=== PATIENT | female | born 1950 | race Caucasian/White ===

== ENCOUNTER 2017-04-13 08:13 | Inpatient (IN) | payer MEDICARE, OTHER ==
[2017-04-13 09:35] LABS: BASO # 0.1 10^3/uL (0.0-0.2); BASO % 1.2 % (0.0-1.0); EOS # 0.3 10^3/uL (0.0-0.50); EOS % 3.8 % (0.0-3.0); HEMOGLOBIN 11.8 g/dl (12.0-16.0); IMMATURE GRANULOCYTE % 0.5 % (0-0); LYMPH # 0.9 10^3/uL (1.5-4.5); LYMPH % 11.3 % (24.0-44.0); MEAN CORPUSCULAR HEMOGLOBIN 27.6 pg (27.0-33.0); MEAN CORPUSCULAR HGB CONC 33.7 g/dl (32.0-36.5); MEAN CORPUSCULAR VOLUME 81.8 fl (80.0-96.0); MONO # 0.8 10^3/uL (0.0-0.8); MONO % 10.1 % (0.0-5.0); NEUTROPHILS % 73.1 % (36.0-66.0); PLATELET COUNT, AUTOMATED 354 10^3/uL (150-450); RED BLOOD COUNT 4.28 10^6/uL (4.00-5.40); RED CELL DISTRIBUTION WIDTH 14.4 % (11.5-14.5); WHITE BLOOD COUNT 8.2 10^3/uL (4.0-10.0)
[2017-04-13 09:38] LABS: INR 0.96; PROTHROMBIN TIME 12.9 SECONDS (12.4-14.5)
[2017-04-13 09:39] LABS: PARTIAL THROMBOPLASTIN TIME 33.4 SECONDS (26.8-37.9)
[2017-04-13 09:48] LABS: ALBUMIN 3.3 GM/DL (3.2-5.2); ALBUMIN/GLOBULIN RATIO 0.79 (1.00-1.93); ALKALINE PHOSPHATASE 70 U/L (45-117); ALT/SGPT 14 U/L (12-78); ANION GAP 8 MEQ/L (8-16); AST/SGOT 15 U/L (7-37); BILIRUBIN,DIRECT < 0.1 MG/DL (0.0-0.2); BILIRUBIN,TOTAL 0.2 MG/DL (0.2-1.0); BLOOD UREA NITROGEN 17 MG/DL (7-18); CALCIUM LEVEL 8.4 MG/DL (8.8-10.2); CARBON DIOXIDE LEVEL 25 MEQ/L (21-32); CHLORIDE LEVEL 97 MEQ/L (98-107); CREATININE FOR GFR 0.97 MG/DL (0.55-1.02); GLOMERULAR FILTRATION RATE > 60.0 (>45); GLUCOSE, FASTING 71 MG/DL (70-100); LIPASE 137 U/L (73-393); POTASSIUM SERUM 4.4 MEQ/L (3.5-5.1); SODIUM LEVEL 130 MEQ/L (136-145); TOTAL PROTEIN 7.5 GM/DL (6.4-8.2)
[2017-04-13] MEDS: ONDANSETRON 4MG/2ML VIAL (J2405) IV ×2 (09:52→19:07)
[2017-04-13] MEDS: MORPHINE 4 MG/ML 1ML SYRINGE IV ×3 (09:53→14:11)
[2017-04-13] MEDS: NS 1,000 ML IV ×4 (09:53→16:52)
[2017-04-13] MEDS: READI-CAT 2 PO ×2 (11:36)
[2017-04-13] MEDS ORDERED: CREON-24 CAPSULE PO (17:00)
[2017-04-13] MEDS: MORPHINE 2 MG/ML 1ML SYRINGE IV ×2 (17:35→20:16)
[2017-04-13] MEDS ORDERED: ONDANSETRON 4 MG TAB (S0181) PO (18:45)
[2017-04-13] MEDS: MONTELUKAST 10 MG TAB PO (19:59)
[2017-04-13] MEDS: FAMOTIDINE 20 MG TAB PO (19:59)
[2017-04-13] MEDS: DOCUSATE SODIUM 100 MG CAP PO (19:59)
[2017-04-13] MEDS: CREON-24 CAPSULE PO (19:59)
[2017-04-13] MEDS: PROPRANOLOL 20 MG TAB PO (20:00)
[2017-04-13] MEDS: URSODIOL 300 MG CAP PO (20:00)
[2017-04-13] MEDS: ADVAIR HFA 115/21MCG INHALER INH (21:53)
[2017-04-14] MEDS: NS 1,000 ML IV ×2 (02:34→12:17)
[2017-04-14 06:09] LABS: HEMATOCRIT 31.7 % (36.0-47.0); HEMOGLOBIN 10.5 g/dl (12.0-16.0); MEAN CORPUSCULAR HEMOGLOBIN 27.6 pg (27.0-33.0); MEAN CORPUSCULAR HGB CONC 33.1 g/dl (32.0-36.5); MEAN CORPUSCULAR VOLUME 83.4 fl (80.0-96.0); PLATELET COUNT, AUTOMATED 278 10^3/uL (150-450); RED CELL DISTRIBUTION WIDTH 14.8 % (11.5-14.5); WHITE BLOOD COUNT 4.6 10^3/uL (4.0-10.0)
[2017-04-14 06:32] LABS: ANION GAP 5 MEQ/L (8-16); BLOOD UREA NITROGEN 8 MG/DL (7-18); CALCIUM LEVEL 7.8 MG/DL (8.8-10.2); CARBON DIOXIDE LEVEL 26 MEQ/L (21-32); CHLORIDE LEVEL 109 MEQ/L (98-107); CREATININE FOR GFR 0.64 MG/DL (0.55-1.02); GLOMERULAR FILTRATION RATE > 60.0 (>45); GLUCOSE, FASTING 86 MG/DL (70-100); POTASSIUM SERUM 4.2 MEQ/L (3.5-5.1); SODIUM LEVEL 140 MEQ/L (136-145)
[2017-04-14] MEDS: TIOTROPIUM INHALER/CAPSULE (SPIRIVA) INH (07:51)
[2017-04-14] MEDS: ADVAIR HFA 115/21MCG INHALER INH ×2 (07:51→19:30)
[2017-04-14] MEDS: OYSTER SHELL CALCIUM 500 MG TAB PO (08:29)
[2017-04-14] MEDS: FAMOTIDINE 20 MG TAB PO ×2 (08:29→21:04)
[2017-04-14] MEDS: DOCUSATE SODIUM 100 MG CAP PO ×2 (08:29→21:04)
[2017-04-14] MEDS: FEXOFENADINE 60 MG TAB PO (08:29)
[2017-04-14] MEDS: PROPRANOLOL 20 MG TAB PO ×3 (08:32→21:03)
[2017-04-14] MEDS: CREON-24 CAPSULE PO ×3 (08:33→17:36)
[2017-04-14] MEDS: URSODIOL 300 MG CAP PO ×2 (08:36→21:04)
[2017-04-14] MEDS ORDERED: MORPHINE 2 MG/ML 1ML SYRINGE IV (09:15)
[2017-04-14] MEDS ORDERED: SIMETHICONE 80 MG CHEW TAB PO (09:15)
[2017-04-14] MEDS: MORPHINE 2 MG/ML 1ML SYRINGE IV ×2 (09:53→21:05)
[2017-04-14] MEDS: MONTELUKAST 10 MG TAB PO (21:04)
[2017-04-14] MEDS ORDERED: IPRATROPIUM 0.5MG/ALBUTEROL 2.5MG INH SOL UD 3ML (DUONEB)(J7620) NEB (22:30)
[2017-04-15] MEDS: NS 1,000 ML IV ×3 (01:30→17:20)
[2017-04-15] MEDS: MORPHINE 2 MG/ML 1ML SYRINGE IV ×2 (04:40→07:42)
[2017-04-15 06:16] LABS: HEMATOCRIT 31.1 % (36.0-47.0); HEMOGLOBIN 10.5 g/dl (12.0-16.0); MEAN CORPUSCULAR HEMOGLOBIN 27.8 pg (27.0-33.0); MEAN CORPUSCULAR HGB CONC 33.8 g/dl (32.0-36.5); MEAN CORPUSCULAR VOLUME 82.3 fl (80.0-96.0); PLATELET COUNT, AUTOMATED 251 10^3/uL (150-450); RED BLOOD COUNT 3.78 10^6/uL (4.00-5.40); RED CELL DISTRIBUTION WIDTH 14.9 % (11.5-14.5); WHITE BLOOD COUNT 6.4 10^3/uL (4.0-10.0)
[2017-04-15 06:27] LABS: ANION GAP 6 MEQ/L (8-16); BLOOD UREA NITROGEN 6 MG/DL (7-18); CALCIUM LEVEL 8.2 MG/DL (8.8-10.2); CARBON DIOXIDE LEVEL 26 MEQ/L (21-32); CHLORIDE LEVEL 108 MEQ/L (98-107); CREATININE FOR GFR 0.55 MG/DL (0.55-1.30); GLOMERULAR FILTRATION RATE > 60.0 (>45); GLUCOSE, FASTING 104 MG/DL (70-100); POTASSIUM SERUM 3.9 MEQ/L (3.5-5.1); SODIUM LEVEL 140 MEQ/L (136-145)
[2017-04-15] MEDS: TIOTROPIUM INHALER/CAPSULE (SPIRIVA) INH (07:32)
[2017-04-15] MEDS: ADVAIR HFA 115/21MCG INHALER INH ×2 (07:33→19:25)
[2017-04-15] MEDS: CREON-24 CAPSULE PO ×3 (07:41→17:21)
[2017-04-15] MEDS: URSODIOL 300 MG CAP PO ×2 (09:02→21:38)
[2017-04-15] MEDS: DOCUSATE SODIUM 100 MG CAP PO (09:02)
[2017-04-15] MEDS: OYSTER SHELL CALCIUM 500 MG TAB PO (09:03)
[2017-04-15] MEDS: PROPRANOLOL 20 MG TAB PO ×2 (09:03→21:38)
[2017-04-15] MEDS: FEXOFENADINE 60 MG TAB PO (09:03)
[2017-04-15] MEDS: FAMOTIDINE 20 MG TAB PO ×2 (09:03→21:38)
[2017-04-15] MEDS: MIRALAX *UNIT DOSE* 17GM PACKET PO (09:04)
[2017-04-15] MEDS: MOM 30ML SUSPENSION UDC PO (12:40)
[2017-04-15] MEDS: ACETAMINOPHEN TAB 650MG DOSE (2X325MG) PO (18:23)
[2017-04-15] MEDS: MONTELUKAST 10 MG TAB PO (21:38)
[2017-04-15] MEDS: SENOKOT S TAB PO (21:38)
[2017-04-16 06:07] LABS: HEMATOCRIT 32.4 % (36.0-47.0); HEMOGLOBIN 10.8 g/dl (12.0-16.0); MEAN CORPUSCULAR HEMOGLOBIN 27.6 pg (27.0-33.0); MEAN CORPUSCULAR HGB CONC 33.3 g/dl (32.0-36.5); MEAN CORPUSCULAR VOLUME 82.7 fl (80.0-96.0); PLATELET COUNT, AUTOMATED 251 10^3/uL (150-450); RED BLOOD COUNT 3.92 10^6/uL (4.00-5.40); RED CELL DISTRIBUTION WIDTH 14.7 % (11.5-14.5); WHITE BLOOD COUNT 5.4 10^3/uL (4.0-10.0)
[2017-04-16] MEDS: ACETAMINOPHEN TAB 650MG DOSE (2X325MG) PO (06:15)
[2017-04-16 06:27] LABS: ANION GAP 7 MEQ/L (8-16); BLOOD UREA NITROGEN 7 MG/DL (7-18); CALCIUM LEVEL 8.6 MG/DL (8.8-10.2); CARBON DIOXIDE LEVEL 25 MEQ/L (21-32); CHLORIDE LEVEL 105 MEQ/L (98-107); CREATININE FOR GFR 0.64 MG/DL (0.55-1.30); GLOMERULAR FILTRATION RATE > 60.0 (>45); GLUCOSE, FASTING 102 MG/DL (70-100); POTASSIUM SERUM 3.8 MEQ/L (3.5-5.1); SODIUM LEVEL 137 MEQ/L (136-145)
[2017-04-16] MEDS ORDERED: ONDANSETRON 4MG/2ML VIAL (J2405) IV (08:45)
[2017-04-16] MEDS: ADVAIR HFA 115/21MCG INHALER INH (08:45)
[2017-04-16] MEDS: TIOTROPIUM INHALER/CAPSULE (SPIRIVA) INH (08:45)
[2017-04-16] MEDS: URSODIOL 300 MG CAP PO (09:00)
[2017-04-16] MEDS: CREON-24 CAPSULE PO (09:00)
[2017-04-16] MEDS: ONDANSETRON 4 MG TAB (S0181) PO (09:00)
[2017-04-16] MEDS: OYSTER SHELL CALCIUM 500 MG TAB PO (09:01)
[2017-04-16] MEDS: FAMOTIDINE 20 MG TAB PO (09:01)
[2017-04-16] MEDS: PROPRANOLOL 20 MG TAB PO (09:01)
[2017-04-16] MEDS: SENOKOT S TAB PO (09:01)
[2017-04-16] MEDS: FEXOFENADINE 60 MG TAB PO (09:01)
== END 2017-04-16 11:29 | disposition home or self-care (01) | DRG 811 ==
LOC: M ED 08:13 → M ED INP 14:07 → M MSPAV 16:23
DX: D62 Acute posthemorrhagic anemia (principal); K57.31 Diverticulosis of large intestine without perforation or abscess with bleeding; I65.29 Occlusion and stenosis of unspecified carotid artery; J44.9 Chronic obstructive pulmonary disease, unspecified; G62.1 Alcoholic polyneuropathy; E11.9 Type 2 diabetes mellitus without complications; E78.5 Hyperlipidemia, unspecified; K21.9 Gastro-esophageal reflux disease without esophagitis; Z86.73 Personal history of transient ischemic attack (TIA), and cerebral infarction without residual deficits; Z90.710 Acquired absence of both cervix and uterus; Z90.721 Acquired absence of ovaries, unilateral; Z87.891 Personal history of nicotine dependence; Z85.42 Personal history of malignant neoplasm of other parts of uterus; Z91.041 Radiographic dye allergy status

== ENCOUNTER 2017-04-26 12:00 | Emergency (ER) | payer MEDICARE | END 2017-04-26 13:27 | disposition home or self-care (01) | LOC: M ED 12:00 | DX: Z45.89 Encounter for adjustment and management of other implanted devices (principal); T83.098A Other mechanical complication of other urinary catheter, initial encounter; X58.XXXA Exposure to other specified factors, initial encounter; Y92.89 Other specified places as the place of occurrence of the external cause; E11.9 Type 2 diabetes mellitus without complications; Z79.899 Other long term (current) drug therapy; Z79.82 Long term (current) use of aspirin; Z88.5 Allergy status to narcotic agent; Z88.8 Allergy status to other drugs, medicaments and biological substances; Z91.040 Latex allergy status | CPT/HCPCS: 51702 ==

== ENCOUNTER 2017-06-04 08:34 | Day surgery (SDC) | payer MEDICARE ==
[2017-06-04] MEDS: NS 1,000 ML IV ×2 (08:45)
[2017-06-04] MEDS ORDERED: PROPOFOL 200 MG/20 ML VIAL As Ordered ×6 (09:15→09:54)
[2017-06-04] MEDS ORDERED: LIDOCAINE 2% INJ 100 MG/5 ML SDV (FOR ANES.) As Ordered ×2 (09:15)
[2017-06-04] MEDS ORDERED: fentaNYL 100 MCG/2 ML INJECTION (J3010) As Ordered ×2 (09:17)
== END 2017-06-04 10:38 | disposition home or self-care (01) ==
LOC: M OPP 08:34
DX: K62.5 Hemorrhage of anus and rectum (principal); D12.3 Benign neoplasm of transverse colon; K21.9 Gastro-esophageal reflux disease without esophagitis; K29.70 Gastritis, unspecified, without bleeding; I65.23 Occlusion and stenosis of bilateral carotid arteries; E11.9 Type 2 diabetes mellitus without complications; E78.5 Hyperlipidemia, unspecified; R12 Heartburn; J44.9 Chronic obstructive pulmonary disease, unspecified; M19.90 Unspecified osteoarthritis, unspecified site; M81.0 Age-related osteoporosis without current pathological fracture; Z87.828 Personal history of other (healed) physical injury and trauma; G43.909 Migraine, unspecified, not intractable, without status migrainosus; G62.9 Polyneuropathy, unspecified; R06.02 Shortness of breath; R32 Unspecified urinary incontinence; J45.909 Unspecified asthma, uncomplicated; Z87.891 Personal history of nicotine dependence; Z88.8 Allergy status to other drugs, medicaments and biological substances; Z91.041 Radiographic dye allergy status; Z88.5 Allergy status to narcotic agent; Z79.82 Long term (current) use of aspirin; Z79.899 Other long term (current) drug therapy
CPT/HCPCS: 45380

== ENCOUNTER → 2017-09-11 | Outpatient (CLI) | payer MEDICARE | LOC: M RAD 12:42 | DX: I65.23 Occlusion and stenosis of bilateral carotid arteries (principal) | CPT/HCPCS: 93880 ==

== ENCOUNTER → 2018-07-14 | Outpatient (CLI) | payer MEDICARE ==
[~2018-07-14] MED LIST: ADV250INH INH; ASPI81TA26 PO; B COTAB3 PO; BIOT1CAP3 PO; BONI1TAB PO; CALCI50TA PO; CELE1CAP4 PO; COLA100C5 PO; CREO24CA PO; DEXI30CA2 PO; ESTR125TA PO; FEXO180T58 PO; FIORCAP3 PO; IPRA0.00 INH; LASI20TA3 PO; MIRA33504 PO; MONT10TA2 PO; PROP20TA72 PO; RANI150T PO; SPIR1CAP INH; SUMA50TA2 PO; URSO300C3 PO; VENTAER INH; ZOFR8TAB24 PO; [UNRECOGNIZED DRUG - CODE] PO
--- NOTE | 2018-07-14 17:05 | REP ---
HISTORY: Followup carotid arterial disease. COMPARISON: Prior examination of 09/11/2017 was reviewed and showed 50 to 79% stenosis of the internal carotid artery bilaterally. Once again, there is echogenic material seen along the carotid arterial kelly, some of which casts an acoustic shadow consistent with calcific deposition. The appearance of this is stable. Right Left CCA systolic 57.1 cm/s 78.1 cm/s CCA diastolic 17.8 cm/s 18.7 cm/s ICA systolic 129.1 cm/s 63.9 cm/s ICA diastolic 27.3 cm/s 30.9 cm/s ICA/CCA ratio 2.26 0.82 Analysis of the spectral tracing shows bilateral internal carotid arterial spectral broadening, right greater than left. There is antegrade flow in the right vertebral artery, however, the left vertebral artery was not seen. IMPRESSION: Due to heavy soft and calcified plaque formation, there is 50 to 79% stenosis of the internal carotid artery bilaterally. This is according to the NASCET consensus criteria. Nonvisualization of the left vertebral artery of uncertain etiology. Consider MRA of the neck. Electronically Signed by Abdoul Baig DO 07/14/2018 05:24 P
== END ==
LOC: M RAD 10:08
PROVIDERS: ATTEND Surgery Vascular Surgery
DX: I65.23 Occlusion and stenosis of bilateral carotid arteries (principal)

== ENCOUNTER → 2019-02-04 | Outpatient (CLI) | payer MEDICARE ==
--- NOTE | 2019-02-04 12:40 | REP ---
RENAL ULTRASOUND: Real-time sonographic evaluation of the kidneys performed and demonstrates both kidneys to be normal in size and architecture, right kidney measuring 9.2 x 5.2 x 3.4 cm and left kidney 9.5 x 4.9 x 4.8 cm. There is no hydronephrosis bilaterally. Cyst in the upper pole of the left kidney measures 1.0 cm in diameter and a cyst in the mid left kidney measures 1.2 x 0.9 x 0.9 cm. Doppler color evaluation of the urinary bladder demonstrates a left ureteral jet. A right ureteral jet is not visualized. IMPRESSION: No hydronephrosis. There are two left renal cysts. Electronically Signed by Adolph Harden MD 02/04/2019 01:03 P
== END ==
LOC: M RAD 11:11
PROVIDERS: ATTEND Family Medicine
DX: Q61.02 Congenital multiple renal cysts (principal)

== ENCOUNTER → 2019-03-12 | Outpatient (CLI) | payer MEDICARE ==
--- NOTE | 2019-03-12 13:42 | REP ---
CAROTID ULTRASOUND: Real-time ultrasound evaluation and duplex Doppler interrogation of the extracranial carotid vasculature is performed. There is mild to moderate plaquing and narrowing in both carotid bulbs extending into the internal and external carotid arteries. Luminal narrowing is less than 50%. There is no evidence of hemodynamically significant stenosis of either internal carotid artery. Normal flow velocities are seen. The right vertebral artery demonstrates normal direction of flow. The left vertebral artery is not visualized. RIGHT LEFT Peak systolic velocity ICA 112 cm/s 93 cm/s End diastolic velocity ICA 35.4 cm/s 29.5 cm/s Peak systolic velocity CCA 124 cm/s 110 cm/s Peak systolic velocity ECA 90.9 cm/s 80.5 cm/s ICA/CCA ratio 0.9 0.8 IMPRESSION: Bilateral luminal narrowing of the internal carotid arteries less than 50%. No evidence of hemodynamically significant stenosis. Electronically Signed by Adolph Hardne MD 03/12/2019 01:33 P
== END ==
LOC: M RAD 12:55
PROVIDERS: ATTEND Physician Assistant
DX: I65.23 Occlusion and stenosis of bilateral carotid arteries (principal)

== ENCOUNTER → 2019-03-29 | Outpatient (CLI) | payer MEDICARE ==
--- NOTE | 2019-03-29 19:13 | REP ---
Bilateral lower extremity arterial Doppler ultrasound: History: Pain in the leg unspecified. Findings: Ankle brachial indices are normal bilaterally measured on each side of 1.1. Relatively normal triphasic and biphasic arterial wave forms are noted throughout the lower extremity arteries. Monophasic wave form was observed in the profunda on the right. Mild to moderate plaquing is seen but no high-grade stenosis is observed. Right lower extremity arterial Doppler velocity chart: CF A 149 cm/S Profunda 209 Proximal SFA 119 Mid SFA 112 Distal SFA 112 Popliteal 46 Proximal AT A 43 Tibioperoneal trunk 52 Proximal SALESPERSON NEW CARS 44 Distal SALESPERSON NEW CARS 83 Distal AT A 40 Left lower extremity arterial Doppler velocity chart: CF A 128 cm/S Profunda 127 Proximal SFA 98 Mid SFA 95 Distal SFA 84 Popliteal 48 Proximal AT A 43 Tibioperoneal trunk 53 Proximal SALESPERSON NEW CARS 54 Distal SALESPERSON NEW CARS 83 Distal AT A 57 Electronically Signed by Alec Ardon MD 03/29/2019 07:03 P
== END ==
LOC: M RAD 14:06
PROVIDERS: ATTEND Physician Assistant
DX: M79.606 Pain in leg, unspecified (principal); I70.203 Unspecified atherosclerosis of native arteries of extremities, bilateral legs

== ENCOUNTER 2019-07-12 10:57 | Emergency (ER) | payer MEDICARE ==
[~2019-07-12] VITALS: Ht 165.1 cm; Wt 51.8 kg
[~2019-07-12 10:57] MED LIST changes: -MONT10TA2 PO; +MONT10TA4 PO
[2019-07-12] MEDS ORDERED: NS 1,000 ML IV ONE ×2 (12:15→16:00)
[2019-07-12 12:41] LABS: BASO # 0.1 10^3/uL (0.0-0.2); BASO % 1.3 % (0.0-1.0); EOS # 0.3 10^3/uL (0.0-0.5); EOS % 5.9 % (0.0-3.0); HEMOGLOBIN 10.2 g/dl (12.0-15.5); LYMPH # 1.7 10^3/uL (1.5-5.0); LYMPH % 30.8 % (24.0-44.0); MEAN CORPUSCULAR HEMOGLOBIN 23.8 pg (27.0-33.0); MEAN CORPUSCULAR HGB CONC 30.9 g/dl (32.0-36.5); MEAN CORPUSCULAR VOLUME 77.1 fl (80.0-96.0); MONO # 0.6 10^3/uL (0.0-0.8); MONO % 11.2 % (0.0-5.0); NEUTROPHILS # 2.8 10^3/uL (1.5-8.5); NEUTROPHILS % 50.4 % (36.0-66.0); PLATELET COUNT, AUTOMATED 287 10^3/uL (150-450); RED BLOOD COUNT 4.28 10^6/uL (4.00-5.40); WHITE BLOOD COUNT 5.6 10^3/uL (4.0-10.0)
[2019-07-12] MEDS ORDERED: METOCLOPRAMIDE INJ 10MG/2ML VIAL (J2765 PER 1) IV ONE (12:45)
[2019-07-12] MEDS ORDERED: MORPHINE 4 MG/ML 1ML VIAL/SYRINGE (J2270) IV ONE ×2 (12:45→15:00)
[2019-07-12 12:57] LABS: BLOOD UREA NITROGEN 16 MG/DL (7-18); CALCIUM LEVEL 8.6 MG/DL (8.8-10.2); CARBON DIOXIDE LEVEL 27 MEQ/L (21-32); CHLORIDE LEVEL 103 MEQ/L (98-107); CK-MB VALUE MASS < 1.0 NG/ML (<3.6); CPK CREATINE PHOSPHOKINASE 40 U/L (26-192); CREATININE FOR GFR 0.86 MG/DL (0.55-1.30); FREE T4 1.04 NG/DL (0.76-1.46); GLOMERULAR FILTRATION RATE > 60.0 (>45); GLUCOSE, FASTING 75 MG/DL (70-100); LIPASE 57 U/L (73-393); MAGNESIUM LEVEL 2.2 MG/DL (1.8-2.4); POTASSIUM SERUM 4.1 MEQ/L (3.5-5.1); SODIUM LEVEL 133 MEQ/L (136-145); TROPONIN I < 0.02 NG/ML (< 0.10)
[2019-07-12 12:59] LABS: ALBUMIN 3.5 GM/DL (3.2-5.2); ALT/SGPT 12 U/L (12-78); BILIRUBIN,DIRECT < 0.1 MG/DL (0.0-0.2); BILIRUBIN,TOTAL 0.1 MG/DL (0.2-1.0); TOTAL PROTEIN 7.6 GM/DL (6.4-8.2)
[2019-07-12] MEDS: READI-CAT 2 PO SCH ×2 (13:46→14:13)
--- NOTE | 2019-07-12 15:38 | REP ---
REASON FOR EXAM: Near syncopal episode. COMPARISON: 10/30/2018 The technique utilized in obtaining the radiograph has magnified the cardiac silhouette and accentuated the interstitial markings. There is evidence of fibrotic change, particularly in the lung bases and right upper lobe region, status quo. The right upper lobe changes are at least partially obscured by external personnel monitor leads. No definite acute patchy parenchymal opacities or pleural effusions have developed. The heart is not enlarged. There is no change in the osseous structures. IMPRESSION: No evidence of acute cardiopulmonary disease. Chronic changes suspected, as described above. Electronically Signed by Abdoul Baig DO 07/12/2019 04:01 P
[2019-07-12] MEDS ORDERED: DICY10CA13 PO (16:15)
[2019-07-12 18:00] VITALS: BP 155/83
--- NOTE | 2019-07-12 22:16 | ECGEPIP ---
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
--- NOTE | 2019-07-13 00:22 | REP ---
CT ABDOMEN AND PELVIS WITHOUT IV BUT WITH ORAL CONTRAST: HISTORY: Abdomen pain. COMPARISON: CT study 10/29/2017. FINDINGS: Preliminary digital bull wheel worker radiograph demonstrates a normal bowel gas pattern. There are surgical clips in right upper quadrant and the right central abdomen. Axial CT images demonstrate mild linear fibrosis in the right lower lobe and right lower lobe bronchiectasis. No infiltrate is seen. No evidence of pleural effusion noted. There is pneumobilia. The patient is status post cholecystectomy. Pancreatic head appears to have been resected and choledochojejunostomy. No pancreatic mass or cyst is seen. No upper abdominal adenopathy is seen. Normal adrenal glands are noted bilaterally. There is no evidence of intrarenal calculus, renal mass, or hydronephrosis on either side. Small bowel loops are unremarkable in the abdomen. No obstruction or mass lesion is appreciated. There is no evidence of free air or free fluid. The uterus is surgically absent. Urinary bladder is intact. No adnexal abnormality is observed. There is left colonic diverticulosis without CT evidence of diverticulitis. There are granulomatous calcifications in the spleen. No abdominal wall defect is seen. There are posttraumatic changes in the pelvis, which appear to be old. No acute fracture or bony destructive lesion is seen. Vascular calcification is noted. Aortic caliber is normal. IMPRESSION: 1. Postoperative changes including partial pancreatectomy, cholecystectomy, and apparently choledochojejunostomy. 2. Left colonic diverticulosis without CT evidence of diverticulitis. 3. Post hysterectomy. 4. Bronchiectasis in the right lower lobe. 5. No acute intra-abdominal abnormality. Electronically Signed by Alec Ardon MD 07/13/2019 07:50 A
== END 2019-07-12 18:22 | disposition home or self-care (01) ==
LOC: M ED 10:57
DX: R10.9 Unspecified abdominal pain (principal); K57.30 Diverticulosis of large intestine without perforation or abscess without bleeding; J47.9 Bronchiectasis, uncomplicated; R55 Syncope and collapse; R19.7 Diarrhea, unspecified; Z85.07 Personal history of malignant neoplasm of pancreas; Z87.19 Personal history of other diseases of the digestive system; R91.1 Solitary pulmonary nodule; Z88.5 Allergy status to narcotic agent; Z88.8 Allergy status to other drugs, medicaments and biological substances; Z91.041 Radiographic dye allergy status; Z79.899 Other long term (current) drug therapy; Z79.82 Long term (current) use of aspirin; Z79.890 Hormone replacement therapy
CPT/HCPCS: 71045; 74176; 80048; 80076; 82550; 82553; 83605; 83690; 83735; 84439; 84443; 84484; 85025; 93005; 93041; 94760; 96361; 96374; 96375; 96376; 99285; J2270; J2765

== ENCOUNTER → 2020-03-23 | Outpatient (CLI) | payer MEDICARE ==
[~2020-03-23] MED LIST changes: +DICY10CA13 PO; -MONT10TA4 PO; +MONT5TAB2 PO
--- NOTE | 2020-03-23 11:51 | REP ---
INDICATION: OCCLUSION/STENOSIS COMPARISON: 03/12/2019 TECHNIQUE: Harden scale and color Doppler evaluation using linear high frequency transducer Findings: FINDINGS: Two-dimensional harden scale and color images demonstrate extensive calcified atheromatous plaquing involving the bilateral distal common carotid arteries through the carotid bulbs and proximal internal carotid arteries (right greater than left). Color images demonstrate visible narrowing through the carotid bulbs with subsequent turbulent flow and Doppler interrogation with spectral broadening. ICA peak systolic velocity: Right 81 cm/s; Left 71 cm/s ICA diastolic velocity: Right 10 cm/s; Left 21 cm/s ECA peak systolic velocity: Right 115 cm/s; Left 65 cm/s CCA peak systolic velocity: Right 104 cm/s; Left 72 cm/s IMPRESSION: 1. Extensive calcified atheromatous plaquing with visible narrowing to the bilateral carotid bulbs and associated subsequent turbulent flow. Findings suggest stenosis approaching the 50-69% range. However evaluation is somewhat limited due to shadowing from calcifications. Consider CTA or MRA for further investigation if necessary. <Electronically signed by Marcial Turner > 03/23/20 [id number]
== END ==
LOC: M RAD 10:39
PROVIDERS: ATTEND Physician Assistant
DX: I65.23 Occlusion and stenosis of bilateral carotid arteries (principal)

== ENCOUNTER → 2020-04-25 | Outpatient (CLI) | payer MEDICARE ==
[~2020-04-25] MED LIST changes: +MONT10TA10 PO; -MONT5TAB2 PO
--- NOTE | 2020-04-25 16:28 | REP ---
INDICATION: UNSP ATHSCL [place] ARTERIES OF EXTREMITIES, JULIA COMPARISON: 03/29/2019. TECHNIQUE: Real time harden scale and Duplex Doppler evaluation of the bilateral lower extremity arterial vasculature using linear high frequency transducer. FINDINGS: Harden scale and duplex doppler images demonstrate mild to moderate amounts of atheromatous plaquing with areas of minimal narrowing but no focal stenosis identified. Doppler interrogation demonstrates normal arterial wave forms and velocities bilaterally. Peak systolic velocities (cm/sec) Common femoral artery: Right 186; Left 165 Profunda femoris: Right 243; Left 155 SFA (proximal): Right 201; Left 100 SFA (mid): Right 91; Left 102 SFA (distal): Right 74; Left 87 Popliteal artery: Right 41; Left 64 ROGELIO (prox.): Right 57; Left 71 Tibioperoneal trunk: Right 86; Left 72 TEACHER ASSOCIATE (prox.): Right 55; Left 86 TEACHER ASSOCIATE (distal): Right 78; Left 87 ROGELIO (distal): Right 56; Left 78 IMPRESSION: Atheromatous changes with areas of narrowing but no obvious focal occlusion or stenosis. <Electronically signed by Adolph Harden > 04/25/20 [id number]
== END ==
LOC: M RAD 12:29
PROVIDERS: ATTEND Physician Assistant
DX: I70.213 Atherosclerosis of native arteries of extremities with intermittent claudication, bilateral legs (principal); I65.23 Occlusion and stenosis of bilateral carotid arteries

== ENCOUNTER → 2020-09-13 | Outpatient (CLI) | payer MEDICARE ==
[2020-09-13 16:47] LABS: BLOOD UREA NITROGEN 8 MG/DL (7-18); CALCIUM LEVEL 8.7 MG/DL (8.8-10.2); CARBON DIOXIDE LEVEL 29 MEQ/L (21-32); CHLORIDE LEVEL 97 MEQ/L (98-107); CREATININE FOR GFR 0.62 MG/DL (0.55-1.30); GLOMERULAR FILTRATION RATE > 60.0 (>45); GLUCOSE, FASTING 91 MG/DL (70-100); POTASSIUM SERUM 3.9 MEQ/L (3.5-5.1); SODIUM LEVEL 132 MEQ/L (136-145)
== END ==
LOC: M LAB 15:47
PROVIDERS: ATTEND Internal Medicine Gastroenterology
DX: Z85.07 Personal history of malignant neoplasm of pancreas (principal)

== ENCOUNTER → 2020-09-15 | Outpatient (CLI) | payer MEDICARE ==
[~2020-09-15] MED LIST changes: +ISOVUE-370 76% 100ML VIAL As Ordered ONE
--- NOTE | 2020-09-15 11:31 | REP ---
INDICATION: PANCREATIC CA COMPARISON: 07/12/2019 TECHNIQUE: Axial contrast-enhanced images of the abdomen followed by delayed images of the abdomen acquired using 100 cc Isovue 370 intravenous contrast material. Coronal and sagittal reformations obtained. This CT examination was performed using the following dose reduction techniques: Automated exposure control, adjustment of mA and/or kv according to the patient's size, and use of iterative reconstruction technique. FINDINGS: Lung bases demonstrate chronic appearing changes without acute consolidation, significant nodule or effusion. Visualized heart and pericardium normal. Liver, spleen, bilateral adrenal glands and kidneys are normal. Patient is noted to be status post Whipple's procedure with a moderate amount of the pneumobilia again noted and unchanged from prior examination. Residual pancreas remains stable and relatively normal. No obvious upper abdominal/right upper quadrant mass lesion, fluid, stranding or adenopathy is appreciated to suggest recurrence or metastatic disease. The enteric system demonstrates moderate fecal stasis. No ascites. No free air. Visualized abdominal aorta and vasculature demonstrates significant atherosclerotic disease without aneurysm or dissection. Surrounding musculoskeletal structures demonstrate age-related changes without acute osseous abnormality. IMPRESSION: 1. Stable postsurgical changes consistent with prior Whipple's procedure and stable pneumobilia. 2. No evidence for recurrence or metastatic disease. 3. Moderate fecal stasis through the visualized colon. 4. Significant atherosclerotic disease to the visualized aorta and vasculature. <Electronically signed by Marcial Turner > 09/15/20 1121
== END ==
LOC: M RAD 10:39
PROVIDERS: ATTEND Internal Medicine Gastroenterology
DX: Z85.00 Personal history of malignant neoplasm of unspecified digestive organ (principal); I70.0 Atherosclerosis of aorta; I25.10 Atherosclerotic heart disease of native coronary artery without angina pectoris
CPT/HCPCS: 74160; Q9967

== ENCOUNTER → 2021-08-23 | Outpatient (REF) | payer MEDICARE ==
[~2021-08-23] MED LIST changes: +FEXO-117 PO; -FEXO180T58 PO; -ISOVUE-370 76% 100ML VIAL As Ordered ONE; -MONT10TA10 PO; +MONT10TA97 PO
[2021-08-23 13:06] LABS: APPEARANCE, URINE HAZY (CLEAR); BACTERIA, URINE AUTO NEGATIVE (NEGATIVE); BILIRUBIN, URINE AUTO NEGATIVE (NEGATIVE); BLOOD, URINE BLOOD NEGATIVE (NEGATIVE); COLOR, URINE YELLOW (YELLOW); GLUCOSE, URINE (UA) AUTO NEGATIVE (NEGATIVE); KETONE, URINE AUTO NEGATIVE (NEGATIVE); LEUKOCYTE ESTERASE, URINE AUTO NEGATIVE (NEGATIVE); MUCUS, URINE SMALL (NEGATIVE); NITRITE, URINE AUTO NEGATIVE (NEGATIVE); PROTEIN, URINE AUTO NEGATIVE (NEGATIVE); RBC, URINE AUTO 1 /HPF (0-3); SPECIFIC GRAVITY URINE AUTO 1.015 (1.002-1.035); SQUAMOUS EPITHELIAL CELL UR AU 8 /HPF (0-6); UROBILINOGEN, URINE AUTO 0.2 mg/dL (0.0-2.0); WBC, URINE AUTO 0 /HPF (0-3)
== END ==
LOC: M SMT 12:43
PROVIDERS: ATTEND Nurse Practitioner Women's Health
DX: R32 Unspecified urinary incontinence (principal)

== ENCOUNTER → 2022-02-27 | Outpatient (CLI) | payer MEDICARE | LOC: M PLAIMG 10:09 | PROVIDERS: ATTEND Internal Medicine Pulmonary Disease | DX: R91.8 Other nonspecific abnormal finding of lung field (principal) ==

== ENCOUNTER → 2022-05-16 | Outpatient (CLI) | payer MEDICARE | LOC: M PLAIMG 10:49 | PROVIDERS: ATTEND Internal Medicine Pulmonary Disease | DX: R91.8 Other nonspecific abnormal finding of lung field (principal); J47.9 Bronchiectasis, uncomplicated; I31.39 Other pericardial effusion (noninflammatory) ==

== ENCOUNTER 2022-07-31 16:50 | Inpatient (IN) | payer MEDICARE ==
[~2022-07-31] VITALS: Ht 167.6 cm; Wt 36.4 kg
[2022-07-31 18:12] LABS: BASO # 0.1 10^3/uL (0.0-0.2); BASO % 1.2 % (0.0-1.0); EOS # 0.1 10^3/uL (0.0-0.5); EOS % 1.3 % (0.0-3.0); HEMOGLOBIN 11.8 g/dl (12.0-15.5); LYMPH # 1.9 10^3/uL (1.5-5.0); LYMPH % 18.5 % (24.0-44.0); MEAN CORPUSCULAR HEMOGLOBIN 29.9 pg (27.0-33.0); MEAN CORPUSCULAR HGB CONC 33.7 g/dl (32.0-36.5); MEAN CORPUSCULAR VOLUME 88.8 fl (80.0-96.0); MONO # 0.9 10^3/uL (0.0-0.8); MONO % 8.8 % (2.0-8.0); NEUTROPHILS # 7.2 10^3/uL (1.5-8.5); NEUTROPHILS % 69.9 % (36.0-66.0); PLATELET COUNT, AUTOMATED 480 10^3/uL (150-450); RED BLOOD COUNT 3.94 10^6/uL (4.00-5.40); WHITE BLOOD COUNT 10.2 10^3/uL (4.0-10.0)
[2022-07-31 18:36] LABS: BLOOD UREA NITROGEN 12 MG/DL (9-23); CALCIUM LEVEL 9.2 MG/DL (8.3-10.6); CARBON DIOXIDE LEVEL 31 MMOL/L (20-31); CHLORIDE LEVEL 95 MMOL/L (98-107); CREATININE FOR GFR 0.65 MG/DL (0.55-1.30); GLOMERULAR FILTRATION RATE > 60.0 (>39); GLUCOSE, FASTING 98 MG/DL (74-106); POTASSIUM SERUM 4.3 MMOL/L (3.5-5.1); SODIUM LEVEL 130 MMOL/L (136-145)
[2022-07-31] MEDS ORDERED: cefTRIAXone SOD 1 GM in D5W MINI-BAG PLUS 50 ML IV ONE (18:40)
[2022-07-31] MEDS ORDERED: ACETAMINOPHEN TAB 650MG DOSE (2X325MG) PO ONE (19:30)
[2022-07-31] MEDS ORDERED: ALBUTEROL SULFATE 2.5MG/0.5ML INH NEB SOLN NEB ONE (19:30)
[2022-07-31] MEDS ORDERED: IPRATROPIUM 0.02% SOLN 0.5MG 2.5ML NEB NEB ONE (19:30)
[2022-07-31] MEDS ORDERED: AZITHROMYCIN 250MG TABLET PO ONE (19:50)
[2022-07-31] MEDS ORDERED: C 50TAB PO (23:29)
[2022-07-31] MEDS ORDERED: B-COTAB4 PO (23:29)
[2022-07-31] MEDS ORDERED: ONDA8TAB8 PO (23:29)
[2022-07-31] MEDS ORDERED: URSO300C3 PO (23:29)
[2022-07-31] MEDS ORDERED: PRED10TA2 PO (23:29)
[2022-07-31] MEDS ORDERED: TRIA25CR TOP (23:29)
[2022-07-31] MEDS ORDERED: MIRA1POW3 PO (23:29)
[2022-07-31] MEDS ORDERED: GABA-1171 PO (23:29)
[2022-07-31] MEDS ORDERED: ALBU2.5V10 INH (23:29)
[2022-07-31] MEDS ORDERED: FLUT1BLS8 INH (23:29)
[2022-07-31] MEDS ORDERED: CITR500T PO (23:29)
[2022-07-31] MEDS ORDERED: TELM1TAB35 PO (23:29)
[2022-07-31] MEDS ORDERED: BUTA1CAP4 PO (23:29)
[2022-07-31] MEDS ORDERED: CITRTAB18 PO (23:29)
[2022-07-31] MEDS ORDERED: HOME MED LIST COMPLETE! XX SCH (23:30)
[2022-08-01] MEDS ORDERED: ALBUTEROL SULFATE 2.5MG/0.5ML INH NEB SOLN INH PRN (01:35)
[2022-08-01] MEDS ORDERED: ACETAMINOPHEN TAB 650MG DOSE (2X325MG) PO PRN (01:35)
[2022-08-01] MEDS ORDERED: NS 500 ML IV ONE (02:30)
[2022-08-01 03:12] VITALS: BP 160/82
[2022-08-01] MEDS: IPRATROPIUM 0.5MG/ALBUTEROL 2.5MG INH SOL UD 3ML (DUONEB) INH SCH ×4 (03:13→20:28)
[2022-08-01 04:06] LABS: OSMOLALITY URINE 258 MOSM/KG (50-1400)
[2022-08-01 04:16] LABS: SODIUM,RANDOM URINE 78 MMOL/L
[2022-08-01 06:16] VITALS: BP 126/65
[2022-08-01 07:29] LABS: ALBUMIN 2.7 G/DL (3.2-5.2); ALKALINE PHOSPHATASE 64 U/L (46-116); ALT/SGPT < 9 U/L (7.0-40); AST/SGOT < 8 U/L (<34); BILIRUBIN,TOTAL 0.2 MG/DL (0.3-1.2); BLOOD UREA NITROGEN 10 MG/DL (9-23); CALCIUM LEVEL 9.1 MG/DL (8.3-10.6); CARBON DIOXIDE LEVEL 29 MMOL/L (20-31); CHLORIDE LEVEL 100 MMOL/L (98-107); CREATININE FOR GFR 0.54 MG/DL (0.55-1.30); GLOMERULAR FILTRATION RATE > 60.0 (>39); GLUCOSE, FASTING 85 MG/DL (74-106); POTASSIUM SERUM 4.1 MMOL/L (3.5-5.1); SODIUM LEVEL 135 MMOL/L (136-145); TOTAL PROTEIN 6.1 G/DL (5.7-8.2)
[2022-08-01] MEDS: CREON-24 CAPSULE PO SCH ×3 (09:01→19:12)
[2022-08-01] MEDS: PROPRANOLOL 20 MG TAB PO SCH ×2 (09:02→20:53)
[2022-08-01] MEDS: ursodioL 300MG CAP PO SCH ×2 (09:02→20:54)
[2022-08-01] MEDS: PANTOPRAZOLE 40MG TAB (PROTONIX) PO SCH (09:02)
[2022-08-01] MEDS: GABAPENTIN 100 MG CAP PO SCH ×2 (09:02→20:54)
[2022-08-01] MEDS: DOCUSATE SODIUM 100MG CAPSULE PO SCH ×2 (09:03→20:54)
[2022-08-01] MEDS: TELMISARTAN 20 MG TAB PO SCH (09:03)
[2022-08-01] MEDS: predniSONE 10MG TAB PO SCH (09:03)
[2022-08-01 12:59] LABS: INR 0.9; PROTHROMBIN TIME 12.3 SECONDS (12.5-14.5)
[2022-08-01 13:00] LABS: PARTIAL THROMBOPLASTIN TIME 30.9 SECONDS (24.8-34.2)
[2022-08-01 13:18] LABS: ABG BASE EXCESS 2.9 (-2.0-2.0); ABG HCO3 26.8 MMOL/L (22.0-26.0); ABG O2 SATURATION 97.8 % (95.0-99.0); ABG PARTIAL PRESSURE CO2 38.4 mmHg (35.0-45.0); ABG PARTIAL PRESSURE O2 104.2 mmHg (75.0-100.0); ABG STANDARD HCO3 27.1 MMOL/L. (22.0-26.0); ABG TOTAL CO2 27.9 MMOL/L (23.0-31.0); ABG pH (ARTERIAL) 7.461 UNITS (7.350-7.450)
[2022-08-01] MEDS: PIPERACILLIN/TAZOBACTAM SOD 3.375 GM in D5W MINI-BAG PLUS 50 ML IV SCH ×2 (13:27→19:21)
[2022-08-01 14:00] VITALS: BP 123/63
[2022-08-01] MEDS ORDERED: LIDOCAINE 2% 100MG/5ML SDV (FOR ANES.) As Ordered ONE (16:55)
[2022-08-01] MEDS ORDERED: propofoL 200 MG/20 ML VIAL As Ordered ONE (16:55)
[2022-08-01] MEDS ORDERED: ROCURONIUM BROMIDE 50MG/5ML VIAL As Ordered ONE (16:55)
[2022-08-01] MEDS ORDERED: fentaNYL 100 MCG/2 ML INJECTION As Ordered ONE (16:56)
[2022-08-01] MEDS ORDERED: MIDAZOLAM INJ 2MG/2ML VIAL As Ordered ONE (16:56)
[2022-08-01] MEDS ORDERED: SUGAMMADEX SODIUM 500 MG/5 ML VIAL (BRIDION) As Ordered ONE (16:56)
[2022-08-01] MEDS ORDERED: ONDANSETRON 4MG 2ML VIAL As Ordered ONE (16:56)
[2022-08-01] MEDS ORDERED: LIDOCAINE 1% SDV 30ML VIAL As Ordered ONE (17:43)
[2022-08-01] MEDS ORDERED: LIDOCAINE VISCOUS 2% SOLN 15ML UDC As Ordered ONE (17:43)
[2022-08-01] MEDS ORDERED: PHENYLephrine 500MCG 5ML (100MCG/ML) SYRINGE As Ordered ONE (17:53)
[2022-08-01] MEDS ORDERED: ePHEDrine SULFATE 25 MG/5 ML(5MG/ML) SYRINGE As Ordered ONE (17:53)
[2022-08-01 18:54] VITALS: BP 131/64
[2022-08-01] MEDS ORDERED: cefTRIAXone SOD 1 GM in D5W MINI-BAG PLUS 50 ML IV SCH (20:00)
[2022-08-01] MEDS ORDERED: AZITHROMYCIN 250MG TABLET PO SCH (21:00)
[2022-08-01 22:06] VITALS: BP 104/60
[2022-08-02] MEDS: PIPERACILLIN/TAZOBACTAM SOD 3.375 GM in D5W MINI-BAG PLUS 50 ML IV SCH ×3 (01:56→14:02)
[2022-08-02] MEDS: IPRATROPIUM 0.5MG/ALBUTEROL 2.5MG INH SOL UD 3ML (DUONEB) INH SCH ×3 (03:18→13:04)
[2022-08-02] MEDS ORDERED: PINK BISMUTH SUSP 524MG/30ML ORAL SYRINGE PO PRN (04:15)
[2022-08-02 05:57] VITALS: BP 104/62
[2022-08-02 07:53] LABS: BASO # 0.1 10^3/uL (0.0-0.2); BASO % 0.4 % (0.0-1.0); EOS # 0.3 10^3/uL (0.0-0.5); EOS % 1.4 % (0.0-3.0); HEMATOCRIT 32.4 % (36.0-47.0); HEMOGLOBIN 10.7 g/dl (12.0-15.5); LYMPH % 10.8 % (24.0-44.0); MEAN CORPUSCULAR HEMOGLOBIN 29.6 pg (27.0-33.0); MEAN CORPUSCULAR VOLUME 89.5 fl (80.0-96.0); MONO # 1.1 10^3/uL (0.0-0.8); MONO % 6.1 % (2.0-8.0); NEUTROPHILS # 14.6 10^3/uL (1.5-8.5); NEUTROPHILS % 80.7 % (36.0-66.0); PLATELET COUNT, AUTOMATED 436 10^3/uL (150-450); RED BLOOD COUNT 3.62 10^6/uL (4.00-5.40); WHITE BLOOD COUNT 18.1 10^3/uL (4.0-10.0)
[2022-08-02 08:04] LABS: ALBUMIN 2.6 G/DL (3.2-5.2); ALKALINE PHOSPHATASE 59 U/L (46-116); ALT/SGPT < 9 U/L (7.0-40); AST/SGOT 12 U/L (<34); BILIRUBIN,TOTAL 0.3 MG/DL (0.3-1.2); BLOOD UREA NITROGEN 11 MG/DL (9-23); CALCIUM LEVEL 8.8 MG/DL (8.3-10.6); CARBON DIOXIDE LEVEL 28 MMOL/L (20-31); CHLORIDE LEVEL 99 MMOL/L (98-107); CREATININE FOR GFR 0.63 MG/DL (0.55-1.30); GLOMERULAR FILTRATION RATE > 60.0 (>39); GLUCOSE, FASTING 96 MG/DL (74-106); MAGNESIUM LEVEL 1.7 MG/DL (1.8-2.4); POTASSIUM SERUM 4.1 MMOL/L (3.5-5.1); SODIUM LEVEL 130 MMOL/L (136-145); TOTAL PROTEIN 5.8 G/DL (5.7-8.2)
[2022-08-02] MEDS: predniSONE 10MG TAB PO SCH (09:17)
[2022-08-02] MEDS: GABAPENTIN 100 MG CAP PO SCH (09:17)
[2022-08-02] MEDS: PANTOPRAZOLE 40MG TAB (PROTONIX) PO SCH (09:17)
[2022-08-02] MEDS: DOCUSATE SODIUM 100MG CAPSULE PO SCH (09:17)
[2022-08-02] MEDS: ursodioL 300MG CAP PO SCH (09:17)
[2022-08-02] MEDS: CREON-24 CAPSULE PO SCH ×2 (09:17→14:01)
[2022-08-02 09:18] VITALS: BP 104/62
[2022-08-02] MEDS: TELMISARTAN 20 MG TAB PO SCH (09:18)
[2022-08-02] MEDS: PROPRANOLOL 20 MG TAB PO SCH (09:18)
[2022-08-02] MEDS ORDERED: MAGNESIUM OXIDE 400MG TAB (MAG-OX) PO ONE (10:00)
[2022-08-02] MEDS ORDERED: ONDANSETRON 4MG ORAL DISINTEGRATING TAB PO PRN (11:10)
[2022-08-02 13:17] VITALS: BP 105/63
[2022-08-02] MEDS ORDERED: CIPR-249 PO (15:15)
[2022-08-02] MEDS ORDERED: AMOX875T2 PO (15:15)
== END 2022-08-02 16:15 | disposition home or self-care (01) | DRG 193 ==
LOC: M ED 16:50 → M ED INP 08-01 00:37 → M MS5PR 08-01 03:00
PROVIDERS: ADMIT Internal Medicine; ATTEND Family Medicine
PROC: 0B968ZX Drainage of Right Lower Lobe Bronchus, Via Natural or Artificial Opening Endoscopic, Diagnostic (ICD-10-PCS; principal; 2022-08-02)
DX: J18.9 Pneumonia, unspecified organism (principal); E43 Unspecified severe protein-calorie malnutrition; E87.1 Hypo-osmolality and hyponatremia; J98.11 Atelectasis; Z85.07 Personal history of malignant neoplasm of pancreas; K76.9 Liver disease, unspecified; I10 Essential (primary) hypertension; K86.89 Other specified diseases of pancreas; K21.9 Gastro-esophageal reflux disease without esophagitis; Z87.891 Personal history of nicotine dependence; Z79.52 Long term (current) use of systemic steroids; Z79.82 Long term (current) use of aspirin; Z79.899 Other long term (current) drug therapy; Z91.041 Radiographic dye allergy status; Z88.5 Allergy status to narcotic agent; Z88.8 Allergy status to other drugs, medicaments and biological substances; J47.9 Bronchiectasis, uncomplicated

== ENCOUNTER → 2022-08-07 | Outpatient (CLI) | payer MEDICARE ==
[~2022-08-07] MED LIST changes: +ALBU2.5V10 INH; +AMOX875T2 PO; +B-COTAB4 PO; +BUTA1CAP4 PO; +C 50TAB PO; +CIPR-249 PO; +CITR500T PO; +CITRTAB18 PO; +FLUT1BLS8 INH; +GABA-1171 PO; +MIRA1POW3 PO; +ONDA8TAB8 PO; +PRED10TA2 PO; +TELM1TAB35 PO; +TRIA25CR TOP
== END ==
LOC: M RAD 13:47
PROVIDERS: ATTEND Physician Assistant
DX: I65.23 Occlusion and stenosis of bilateral carotid arteries (principal)

== ENCOUNTER → 2022-09-23 | Outpatient (CLI) | payer MEDICARE ==
[~2022-09-23] MED LIST changes: +DICY-61 PO; -DICY10CA13 PO
[2022-09-23 15:37] LABS: BASO # 0.1 10^3/uL (0.0-0.2); BASO % 0.9 % (0.0-1.0); EOS # 0.3 10^3/uL (0.0-0.5); EOS % 2.5 % (0.0-3.0); HEMATOCRIT 41.2 % (36.0-47.0); HEMOGLOBIN 13.6 g/dl (12.0-15.5); LYMPH # 1.4 10^3/uL (1.5-5.0); LYMPH % 12.5 % (24.0-44.0); MEAN CORPUSCULAR HEMOGLOBIN 29.6 pg (27.0-33.0); MEAN CORPUSCULAR VOLUME 89.6 fl (80.0-96.0); MONO # 0.7 10^3/uL (0.0-0.8); MONO % 6.1 % (2.0-8.0); NEUTROPHILS # 8.5 10^3/uL (1.5-8.5); NEUTROPHILS % 77.5 % (36.0-66.0); PLATELET COUNT, AUTOMATED 513 10^3/uL (150-450)
[2022-09-23 16:09] LABS: ALBUMIN 3.1 G/DL (3.2-5.2); ALKALINE PHOSPHATASE 63 U/L (46-116); ALT/SGPT < 9 U/L (7.0-40); AST/SGOT 12 U/L (<34); BILIRUBIN,TOTAL 0.8 MG/DL (0.3-1.2); BLOOD UREA NITROGEN 9 MG/DL (9-23); CALCIUM LEVEL 12.2 MG/DL (8.3-10.6); CARBON DIOXIDE LEVEL 33 MMOL/L (20-31); CHLORIDE LEVEL 89 MMOL/L (98-107); CREATININE FOR GFR 0.51 MG/DL (0.55-1.30); GLOMERULAR FILTRATION RATE > 60.0 (>39); GLUCOSE, FASTING 90 MG/DL (74-106); POTASSIUM SERUM 4.1 MMOL/L (3.5-5.1); SODIUM LEVEL 127 MMOL/L (136-145)
[2022-09-23 16:10] LABS: IMMUNOGLOBULIN A 298.2 MG/DL (40-350); IMMUNOGLOBULIN G 1615 MG/DL (650-1600); IMMUNOGLOBULIN M 173.6 MG/DL (50-300)
[2022-09-23 16:21] LABS: ERYTHROCYTE SEDIMENTATION RATE 64 mm/hr (0-30)
[2022-09-23 16:36] LABS: HIV 1&2 SCREEN NEGATIVE (NEGATIVE)
== END ==
LOC: M PLALAB 12:49
PROVIDERS: ATTEND Internal Medicine Infectious Disease
DX: A31.0 Pulmonary mycobacterial infection (principal); B44.9 Aspergillosis, unspecified

== ENCOUNTER → 2022-11-12 | Outpatient (CLI) | payer MEDICARE ==
[2022-11-12 15:56] LABS: BASO # 0.1 10^3/uL (0.0-0.2); BASO % 1.1 % (0.0-1.0); EOS # 0.1 10^3/uL (0.0-0.5); EOS % 1.5 % (0.0-3.0); HEMATOCRIT 44.3 % (36.0-47.0); HEMOGLOBIN 14.3 g/dl (12.0-15.5); LYMPH # 1.4 10^3/uL (1.5-5.0); LYMPH % 15.8 % (24.0-44.0); MEAN CORPUSCULAR HEMOGLOBIN 29.5 pg (27.0-33.0); MEAN CORPUSCULAR HGB CONC 32.3 g/dl (32.0-36.5); MEAN CORPUSCULAR VOLUME 91.3 fl (80.0-96.0); MONO # 0.7 10^3/uL (0.0-0.8); MONO % 7.3 % (2.0-8.0); NEUTROPHILS # 6.8 10^3/uL (1.5-8.5); PLATELET COUNT, AUTOMATED 463 10^3/uL (150-450); RED BLOOD COUNT 4.85 10^6/uL (4.00-5.40); WHITE BLOOD COUNT 9.1 10^3/uL (4.0-10.0)
[2022-11-12 16:22] LABS: ALBUMIN 3.2 G/DL (3.2-5.2); ALKALINE PHOSPHATASE 75 U/L (46-116); ALT/SGPT < 9 U/L (7.0-40); AST/SGOT < 8 U/L (<34); BILIRUBIN,TOTAL 0.4 MG/DL (0.3-1.2); BLOOD UREA NITROGEN 8 MG/DL (9-23); CARBON DIOXIDE LEVEL 32 MMOL/L (20-31); CHLORIDE LEVEL 95 MMOL/L (98-107); CREATININE FOR GFR 0.49 MG/DL (0.55-1.30); ERYTHROCYTE SEDIMENTATION RATE 36 mm/hr (0-30); GLOMERULAR FILTRATION RATE > 60.0 (>39); GLUCOSE, FASTING 91 MG/DL (74-106); POTASSIUM SERUM 5.3 MMOL/L (3.5-5.1); SODIUM LEVEL 133 MMOL/L (136-145); TOTAL PROTEIN 7.4 G/DL (5.7-8.2)
[2022-11-12 16:26] LABS: IMMUNOGLOBULIN E 19.4 IU/ML (0-378)
[2022-11-16 00:07] LABS: ASPERGILLUS GALACTOMANNAN AG 0.06 Index (0.00-0.49)
== END ==
LOC: M PLALAB 13:42
PROVIDERS: ATTEND Internal Medicine Infectious Disease
DX: A31.0 Pulmonary mycobacterial infection (principal); B44.9 Aspergillosis, unspecified

== ENCOUNTER → 2023-03-07 | Outpatient (CLI) | payer MEDICARE, MEDICAID | LOC: M RAD 13:30 | PROVIDERS: ATTEND Internal Medicine Pulmonary Disease | DX: R91.8 Other nonspecific abnormal finding of lung field (principal) ==

== ENCOUNTER 2023-05-12 17:24 | Emergency (ER) | payer MEDICARE, MEDICAID ==
[~2023-05-12] VITALS: Ht 165.1 cm; Wt 35.5 kg
[~2023-05-12 17:24] MED LIST changes: -MIRA1POW3 PO; +MIRA33506 PO
[2023-05-12 18:38] LABS: BASO # 0.1 10^3/uL (0.0-0.2); BASO % 1.9 % (0.0-1.0); EOS # 0.4 10^3/uL (0.0-0.5); EOS % 5.1 % (0.0-3.0); HEMATOCRIT 37.2 % (36.0-47.0); HEMOGLOBIN 12.5 g/dl (12.0-15.5); LYMPH # 1.5 10^3/uL (1.5-5.0); LYMPH % 20.6 % (24.0-44.0); MEAN CORPUSCULAR HEMOGLOBIN 30.9 pg (27.0-33.0); MEAN CORPUSCULAR HGB CONC 33.6 g/dl (32.0-36.5); MEAN CORPUSCULAR VOLUME 91.9 fl (80.0-96.0); NEUTROPHILS # 4.3 10^3/uL (1.5-8.5); NEUTROPHILS % 59.1 % (36.0-66.0); PLATELET COUNT, AUTOMATED 495 10^3/uL (150-450); RED BLOOD COUNT 4.05 10^6/uL (4.00-5.40); WHITE BLOOD COUNT 7.3 10^3/uL (4.0-10.0)
[2023-05-12 18:50] LABS: THYROID STIMULATING HORMONE 3.642 uIU/ML (0.55-4.78); THYROXINE (T4) 8.8 UG/DL (4.5-10.9)
[2023-05-12 18:55] LABS: ALBUMIN 2.6 G/DL (3.2-5.2); ALKALINE PHOSPHATASE 60 U/L (46-116); ALT/SGPT < 9 U/L (7.0-40); AST/SGOT 20 U/L (<34); BILIRUBIN,DIRECT 0.1 MG/DL (<0.4); BILIRUBIN,TOTAL 0.3 MG/DL (0.3-1.2); BLOOD UREA NITROGEN 8 MG/DL (9-23); CARBON DIOXIDE LEVEL 29 MMOL/L (20-31); CHLORIDE LEVEL 97 MMOL/L (98-107); CK-MB VALUE MASS 1.1 NG/ML (<3.6); CPK CREATINE PHOSPHOKINASE 49 U/L (34-145); CREATININE FOR GFR 0.47 MG/DL (0.55-1.30); GLOMERULAR FILTRATION RATE > 60.0 (>39); GLUCOSE, FASTING 113 MG/DL (74-106); MB/CK RELATIVE INDEX 2.24 (< OR =4); POTASSIUM SERUM 4.3 MMOL/L (3.5-5.1); SODIUM LEVEL 126 MMOL/L (136-145); TOTAL PROTEIN 6.1 G/DL (5.7-8.2)
[2023-05-12 19:09] LABS: INR 0.95; PROTHROMBIN TIME 12.4 SECONDS (12.5-14.5)
[2023-05-12 20:16] LABS: CK-MB VALUE MASS < 1.0 NG/ML (<3.6)
[2023-05-12 20:21] LABS: CPK CREATINE PHOSPHOKINASE 30 U/L (34-145); MB/CK RELATIVE INDEX 3.33 (< OR =4)
[2023-05-12 20:39] LABS: ABG BASE EXCESS 4.4 (-2.0-2.0); ABG HCO3 29.9 MMOL/L (22.0-26.0); ABG O2 SATURATION 93.1 % (95.0-99.0); ABG PARTIAL PRESSURE CO2 47.9 mmHg (35.0-45.0); ABG PARTIAL PRESSURE O2 68.3 mmHg (75.0-100.0); ABG STANDARD HCO3 28.4 MMOL/L. (22.0-26.0); ABG TOTAL CO2 31.4 MMOL/L (23.0-31.0); ABG pH (ARTERIAL) 7.413 UNITS (7.350-7.450)
[2023-05-12] MEDS: ASPIRIN 81MG CHEW TABLET PO ONE (20:58)
[2023-05-12] MEDS ORDERED: HEPARIN SOD (PORCINE) 5000UNITS/ML 1ML VIAL/SYRINGE IV PRN (22:15)
[2023-05-12] MEDS: HEPARIN SOD (PORCINE) 5000UNITS/ML 1ML VIAL/SYRINGE IV ONE (22:38)
[2023-05-12] MEDS: HEPARIN DRIP 25,000 UNITS in IV 1 EA IV SCH (22:39)
[2023-05-12 23:15] VITALS: BP 154/78; TEMP 97.2; O2SAT 97
== END 2023-05-12 23:25 | disposition short-term general hospital (02) ==
LOC: M ED 17:24
DX: I21.4 Non-ST elevation (NSTEMI) myocardial infarction (principal); E11.42 Type 2 diabetes mellitus with diabetic polyneuropathy; E78.5 Hyperlipidemia, unspecified; J47.9 Bronchiectasis, uncomplicated; Z85.07 Personal history of malignant neoplasm of pancreas; Z85.42 Personal history of malignant neoplasm of other parts of uterus; Z82.49 Family history of ischemic heart disease and other diseases of the circulatory system; Z79.82 Long term (current) use of aspirin; Z79.899 Other long term (current) drug therapy; Z91.041 Radiographic dye allergy status; Z88.5 Allergy status to narcotic agent; Z88.8 Allergy status to other drugs, medicaments and biological substances

== ENCOUNTER → 2023-06-12 | Outpatient (CLI) | payer MEDICARE, MEDICAID ==
[~2023-06-12] MED LIST changes: -B-COTAB4 PO; +VITA1TAB78 PO
== END ==
LOC: M RAD 11:11
PROVIDERS: ATTEND Family Medicine
DX: M25.511 Pain in right shoulder (principal); R91.8 Other nonspecific abnormal finding of lung field; Z87.81 Personal history of (healed) traumatic fracture

== ENCOUNTER 2023-08-13 17:07 | Inpatient (IN) | payer MEDICARE, MEDICAID ==
[~2023-08-13] VITALS: Ht 165.1 cm; Wt 36.0 kg
[~2023-08-13 17:07] MED LIST changes: -ATOR1TAB19 PO; -AZIT-12 PO; -BACI1CAP PO; -BARIUM SULFATE 700 MG TABLET (E-Z-DISK) As Ordered ONE; -BENZ-18 PO; -CEFD1CAP9 PO; -DOXY-440 PO; -E-Z-PAQUE 96% w/w SUSP 176GM BTL As Ordered ONE; -ETHA1TAB2 PO; -FLON1SPR; -HYDR-643 PO; -IBAN150T6 PO; -RIFA300C62 PO; -TRAM50TA2 PO; -VARIBAR NECTAR 40% w/v 240ML SUSP BTL As Ordered ONE; -VARIBAR PUDDING 40% w/v 230ML TUBE As Ordered ONE; -VITA-172 PO; -VITA100093 PO
[2023-08-13] MEDS: NS 1,000 ML IV SCH (17:47)
[2023-08-13 17:54] LABS: BASO # 0.1 10^3/uL (0.0-0.2); BASO % 1.1 % (0.0-1.0); EOS # 0.7 10^3/uL (0.0-0.5); EOS % 5.5 % (0.0-3.0); HEMATOCRIT 36.6 % (36.0-47.0); HEMOGLOBIN 12.9 g/dl (12.0-15.5); LYMPH # 1.9 10^3/uL (1.5-5.0); LYMPH % 14.9 % (24.0-44.0); MEAN CORPUSCULAR HEMOGLOBIN 31.6 pg (27.0-33.0); MEAN CORPUSCULAR HGB CONC 35.2 g/dl (32.0-36.5); MEAN CORPUSCULAR VOLUME 89.7 fl (80.0-96.0); MONO # 1.4 10^3/uL (0.0-0.8); MONO % 11.4 % (2.0-8.0); NEUTROPHILS # 8.3 10^3/uL (1.5-8.5); NEUTROPHILS % 66.7 % (36.0-66.0); PLATELET COUNT, AUTOMATED 482 10^3/uL (150-450); RED BLOOD COUNT 4.08 10^6/uL (4.00-5.40); WHITE BLOOD COUNT 12.5 10^3/uL (4.0-10.0)
[2023-08-13 18:11] LABS: INR 1.01
[2023-08-13] MEDS: DEXTROSE 50% 50ML SYRINGE IV STA (18:18)
[2023-08-13 18:22] LABS: BLOOD UREA NITROGEN 12 MG/DL (9-23); CALCIUM LEVEL 9.1 MG/DL (8.3-10.6); CARBON DIOXIDE LEVEL 27 MMOL/L (20-31); CHLORIDE LEVEL 90 MMOL/L (98-107); CREATININE FOR GFR 0.52 MG/DL (0.55-1.30); GLOMERULAR FILTRATION RATE > 60.0 (>39); GLUCOSE, FASTING 65 MG/DL (74-106); MAGNESIUM LEVEL 1.5 MG/DL (1.8-2.4); POTASSIUM SERUM 4.5 MMOL/L (3.5-5.1); SODIUM LEVEL 124 MMOL/L (136-145)
[2023-08-13] MEDS: MAG SULF 1GM/100ML (MAG RUN) 1 GM in IV 1 EA IV ONE (18:30)
[2023-08-13 18:38] LABS: LIPASE 21 U/L (12-53)
[2023-08-13 18:42] LABS: ALBUMIN 3.1 G/DL (3.2-5.2); ALKALINE PHOSPHATASE 83 U/L (46-116); ALT/SGPT 10 U/L (7.0-40); AST/SGOT 11 U/L (<34); BILIRUBIN,DIRECT 0.1 MG/DL (<0.4); BILIRUBIN,TOTAL 0.3 MG/DL (0.3-1.2); TOTAL PROTEIN 6.7 G/DL (5.7-8.2)
[2023-08-13 18:58] LABS: CK-MB VALUE MASS < 1.0 NG/ML (<3.6)
[2023-08-13 19:09] LABS: ETHYL ALCOHOL (ETHANOL) < 0.003 % (0.000-0.010)
[2023-08-13 19:11] LABS: ACETONE/KETONE 0.11 MMOL/L (0.02-0.27)
[2023-08-13 19:13] LABS: CPK CREATINE PHOSPHOKINASE 45 U/L (34-145); MB/CK RELATIVE INDEX 2.22 (< OR =4)
[2023-08-13 19:17] LABS: OSMOLALITY SERUM 258 MOSM/KG (280-301)
[2023-08-13 20:56] LABS: HEMOGLOBIN A1c 5.8 % (4.0-6.0)
[2023-08-13] MEDS: ATORVASTATIN 10 MG TAB PO SCH (21:00)
[2023-08-13] MEDS ORDERED: ACETAMINOPHEN TAB 650MG DOSE (2X325MG) PO PRN (22:55)
[2023-08-13] MEDS ORDERED: VITA100093 PO (23:56)
[2023-08-13] MEDS ORDERED: FLON1SPR (23:56)
[2023-08-13] MEDS ORDERED: RIFA300C62 PO (23:56)
[2023-08-13] MEDS ORDERED: TRAM50TA2 PO (23:56)
[2023-08-13] MEDS ORDERED: ATOR1TAB19 PO (23:56)
[2023-08-13] MEDS ORDERED: VITA-172 PO (23:56)
[2023-08-13] MEDS ORDERED: HYDR-643 PO (23:56)
[2023-08-13] MEDS ORDERED: AZIT-12 PO (23:56)
[2023-08-13] MEDS ORDERED: BENZ-18 PO (23:56)
[2023-08-13] MEDS ORDERED: IBAN150T6 PO (23:56)
[2023-08-13] MEDS ORDERED: ETHA1TAB2 PO (23:56)
[2023-08-14] VITALS (8 sets, daily range): BP systolic 125–165; BP diastolic 65–81; TEMP 97.4–98.2; O2SAT 96–99
[2023-08-14] MEDS ORDERED: HOME MED LIST COMPLETE! XX SCH
[2023-08-14 00:23] LABS: BLOOD UREA NITROGEN 8 MG/DL (9-23); CALCIUM LEVEL 8.3 MG/DL (8.3-10.6); CARBON DIOXIDE LEVEL 28 MMOL/L (20-31); CHLORIDE LEVEL 97 MMOL/L (98-107); CREATININE FOR GFR 0.46 MG/DL (0.55-1.30); GLOMERULAR FILTRATION RATE > 60.0 (>39); GLUCOSE, FASTING 77 MG/DL (74-106); POTASSIUM SERUM 4.5 MMOL/L (3.5-5.1); SODIUM LEVEL 129 MMOL/L (136-145)
[2023-08-14] MEDS ORDERED: CREON-24 CAPSULE PO SCH (03:20)
[2023-08-14] MEDS ORDERED: TRIAMCINOLONE ACETONIDE 0.025% 80GM CREAM TOP PRN (03:20)
[2023-08-14] MEDS ORDERED: ALBUTEROL 90 MCG/ACT 8GM HFA INHALER INH PRN (03:20)
[2023-08-14] MEDS ORDERED: BENZONATATE 100MG CAPSULE PO PRN (03:20)
[2023-08-14] MEDS: NS 500 ML IV ONE (04:48)
[2023-08-14 05:06] LABS: BASO # 0.1 10^3/uL (0.0-0.2); BASO % 1.5 % (0.0-1.0); EOS # 0.7 10^3/uL (0.0-0.5); EOS % 8.7 % (0.0-3.0); HEMATOCRIT 33.8 % (36.0-47.0); HEMOGLOBIN 11.9 g/dl (12.0-15.5); LYMPH # 1.4 10^3/uL (1.5-5.0); LYMPH % 16.6 % (24.0-44.0); MEAN CORPUSCULAR HEMOGLOBIN 31.7 pg (27.0-33.0); MEAN CORPUSCULAR HGB CONC 35.2 g/dl (32.0-36.5); MEAN CORPUSCULAR VOLUME 90.1 fl (80.0-96.0); MONO % 12.3 % (2.0-8.0); NEUTROPHILS % 60.5 % (36.0-66.0); PLATELET COUNT, AUTOMATED 395 10^3/uL (150-450); RED BLOOD COUNT 3.75 10^6/uL (4.00-5.40); WHITE BLOOD COUNT 8.2 10^3/uL (4.0-10.0)
[2023-08-14] MEDS: LevoFLOXacin IV 250 MG in IV 1 EA IV SCH (05:14)
[2023-08-14] MEDS ORDERED: GLUCAGON INJ 1MG VIAL SC PRN (05:25)
[2023-08-14] MEDS ORDERED: GLUCOSE 4 GM CHEW PO PRN (05:25)
[2023-08-14] MEDS ORDERED: DEXTROSE 50% 50ML SYRINGE IV PRN (05:25)
[2023-08-14 05:32] LABS: BLOOD UREA NITROGEN 7 MG/DL (9-23); CALCIUM LEVEL 8.8 MG/DL (8.3-10.6); CARBON DIOXIDE LEVEL 31 MMOL/L (20-31); CHLORIDE LEVEL 98 MMOL/L (98-107); CREATININE FOR GFR 0.41 MG/DL (0.55-1.30); GLOMERULAR FILTRATION RATE > 60.0 (>39); GLUCOSE, FASTING 93 MG/DL (74-106); POTASSIUM SERUM 4.9 MMOL/L (3.5-5.1); SODIUM LEVEL 131 MMOL/L (136-145)
[2023-08-14] MEDS: CREON-24 CAPSULE PO SCH (08:38)
[2023-08-14] MEDS: VITAMIN D 1,000 INTERNATIONAL UNITS TABLET PO SCH (08:41)
[2023-08-14] MEDS: GABAPENTIN 100 MG CAP PO SCH (08:41)
[2023-08-14] MEDS: PROPRANOLOL 20 MG TAB PO SCH (08:41)
[2023-08-14] MEDS: TELMISARTAN 20 MG TAB PO SCH (08:42)
[2023-08-14] MEDS: predniSONE 10MG TAB PO SCH (08:42)
[2023-08-14] MEDS: CYANOCOBALAMIN 500 MCG TAB PO SCH (08:43)
[2023-08-14] MEDS: ursodioL 300MG CAP PO SCH (08:43)
[2023-08-14] MEDS: ASPIRIN 81MG ENTERIC TABLET PO SCH (08:43)
[2023-08-14] MEDS: HEPARIN SOD (PORCINE) 5000UNITS/ML 1ML VIAL/SYRINGE SQ SCH (08:43)
[2023-08-14] MEDS: DOCUSATE SODIUM 100MG CAPSULE PO SCH (08:44)
[2023-08-14] MEDS: ETHAMBUTOL 400MG TAB PO SCH (10:34)
[2023-08-14] MEDS: SODIUM CHLORIDE 1 GM TAB PO SCH (13:05)
[2023-08-14] MEDS: PANTOPRAZOLE 20 MG TAB PO SCH (17:41)
[2023-08-14] MEDS: ALBUTEROL SULFATE 2.5MG/0.5ML INH NEB SOLN INH PRN (21:11)
[2023-08-14] MEDS: ONDANSETRON 4MG ORAL DISINTEGRATING TAB PO PRN (22:54)
[2023-08-14] MEDS: guaiFENesin ER TABLET 600 MG TAB PO SCH (22:54)
[2023-08-14 23:04] LABS: BLOOD UREA NITROGEN 12 MG/DL (9-23); CALCIUM LEVEL 8.4 MG/DL (8.3-10.6); CARBON DIOXIDE LEVEL 27 MMOL/L (20-31); CHLORIDE LEVEL 97 MMOL/L (98-107); GLOMERULAR FILTRATION RATE > 60.0 (>39); GLUCOSE, FASTING 144 MG/DL (74-106); POTASSIUM SERUM 4.6 MMOL/L (3.5-5.1); SODIUM LEVEL 129 MMOL/L (136-145)
[2023-08-15] MEDS: LevoFLOXacin IV 750 MG in IV 1 EA IV SCH (04:45)
[2023-08-15 05:25] VITALS: BP 117/65; TEMP 97.5; O2SAT 96
[2023-08-15 05:53] LABS: BASO # 0.1 10^3/uL (0.0-0.2); BASO % 1.3 % (0.0-1.0); EOS # 0.8 10^3/uL (0.0-0.5); EOS % 7.6 % (0.0-3.0); HEMATOCRIT 37.9 % (36.0-47.0); HEMOGLOBIN 12.6 g/dl (12.0-15.5); LYMPH # 1.4 10^3/uL (1.5-5.0); LYMPH % 13.9 % (24.0-44.0); MEAN CORPUSCULAR HEMOGLOBIN 30.9 pg (27.0-33.0); MEAN CORPUSCULAR HGB CONC 33.2 g/dl (32.0-36.5); MEAN CORPUSCULAR VOLUME 92.9 fl (80.0-96.0); MONO # 0.9 10^3/uL (0.0-0.8); MONO % 8.8 % (2.0-8.0); NEUTROPHILS # 6.8 10^3/uL (1.5-8.5); NEUTROPHILS % 68.1 % (36.0-66.0); PLATELET COUNT, AUTOMATED 377 10^3/uL (150-450); RED BLOOD COUNT 4.08 10^6/uL (4.00-5.40)
[2023-08-15 06:26] LABS: BLOOD UREA NITROGEN 10 MG/DL (9-23); CARBON DIOXIDE LEVEL 27 MMOL/L (20-31); CHLORIDE LEVEL 97 MMOL/L (98-107); CREATININE FOR GFR 0.45 MG/DL (0.55-1.30); GLOMERULAR FILTRATION RATE > 60.0 (>39); GLUCOSE, FASTING 100 MG/DL (74-106); POTASSIUM SERUM 4.8 MMOL/L (3.5-5.1); SODIUM LEVEL 129 MMOL/L (136-145)
[2023-08-15 07:19] LABS: SODIUM, URINE 115 MMOL/L
[2023-08-15] MEDS ORDERED: CEFD1CAP9 PO (10:22)
[2023-08-15] MEDS ORDERED: BACI1CAP PO (10:24)
[2023-08-15] MEDS ORDERED: DOXY-440 PO (10:24)
[2023-08-15] MEDS: TRIAMCINOLONE ACET 0.1% OINTMENT 80GM TOP SCH (12:39)
[2023-08-15 13:55] LABS: SODIUM 24 HOUR URINE 184 MMOL/24 (40-220); TOTAL VOLUME, URINE 1600 ML
[2023-08-15 14:00] VITALS: BP 140/71; TEMP 97.5; O2SAT 97
[2023-08-18 17:08] LABS: BODY FLUID CULTURE Not indicated. (.); LEGIONELLA ANTIGEN URINE Negative (Negative); ORGANISM ID Not indicated. (.); SPECIMEN SOURCE Urine (.); URINE STREP PNEUMONIAE ANTIGEN Negative (Negative)
== END 2023-08-15 15:54 | disposition home or self-care (01) | DRG 640 ==
LOC: M ED 17:07 → M ED INP 22:55 → M ICU 08-14 04:12 → M MSPAV 08-14 12:21
PROVIDERS: ADMIT Preventive Medicine Undersea and Hyperbaric Medicine; ATTEND General Practice
DX: E87.1 Hypo-osmolality and hyponatremia (principal); J18.9 Pneumonia, unspecified organism; E43 Unspecified severe protein-calorie malnutrition; J44.0 Chronic obstructive pulmonary disease with (acute) lower respiratory infection; R64 Cachexia; C25.9 Malignant neoplasm of pancreas, unspecified; E11.649 Type 2 diabetes mellitus with hypoglycemia without coma; I25.10 Atherosclerotic heart disease of native coronary artery without angina pectoris; I10 Essential (primary) hypertension; K76.9 Liver disease, unspecified; K21.9 Gastro-esophageal reflux disease without esophagitis; Z79.82 Long term (current) use of aspirin; Z79.2 Long term (current) use of antibiotics; Z79.899 Other long term (current) drug therapy; Z88.5 Allergy status to narcotic agent; Z88.8 Allergy status to other drugs, medicaments and biological substances; Z91.041 Radiographic dye allergy status; I25.2 Old myocardial infarction; Z79.52 Long term (current) use of systemic steroids; Z87.891 Personal history of nicotine dependence

== ENCOUNTER → 2023-08-13 | Outpatient (CLI) | payer MEDICARE, MEDICAID ==
[~2023-08-13] MED LIST changes: +ATOR1TAB19 PO; +AZIT-12 PO; +BACI1CAP PO; +BARIUM SULFATE 700 MG TABLET (E-Z-DISK) As Ordered ONE; +BENZ-18 PO; +CEFD1CAP9 PO; +DOXY-440 PO; +E-Z-PAQUE 96% w/w SUSP 176GM BTL As Ordered ONE; +ETHA1TAB2 PO; +FLON1SPR; +HYDR-643 PO; +IBAN150T6 PO; +RIFA300C62 PO; +TRAM50TA2 PO; +VARIBAR NECTAR 40% w/v 240ML SUSP BTL As Ordered ONE; +VARIBAR PUDDING 40% w/v 230ML TUBE As Ordered ONE; +VITA-172 PO; +VITA100093 PO
[2023-08-13 12:51] LABS: ALBUMIN 3.3 G/DL (3.2-5.2); ALKALINE PHOSPHATASE 86 U/L (46-116); ALT/SGPT 10 U/L (7.0-40); AST/SGOT 10 U/L (<34); BLOOD UREA NITROGEN 8 MG/DL (9-23); CALCIUM LEVEL 10.1 MG/DL (8.3-10.6); CARBON DIOXIDE LEVEL 30 MMOL/L (20-31); CHLORIDE LEVEL 87 MMOL/L (98-107); CREATININE FOR GFR 0.41 MG/DL (0.55-1.30); GLOMERULAR FILTRATION RATE > 60.0 (>39); GLUCOSE, FASTING 100 MG/DL (74-106); POTASSIUM SERUM 4.2 MMOL/L (3.5-5.1); SODIUM LEVEL 123 MMOL/L (136-145); TOTAL PROTEIN 6.9 G/DL (5.7-8.2)
== END ==
LOC: M LAB 09:57
PROVIDERS: ATTEND Internal Medicine Gastroenterology
DX: Z85.00 Personal history of malignant neoplasm of unspecified digestive organ (principal)

== ENCOUNTER → 2023-08-28 | Outpatient (CLI) | payer MEDICARE, MEDICAID ==
[~2023-08-28] MED LIST changes: +ATOR1TAB19 PO; +AZIT-12 PO; +BACI1CAP PO; +BENZ-18 PO; +CEFD1CAP9 PO; +DOXY-440 PO; +ETHA1TAB2 PO; +FLON1SPR; +GASTROGRAFIN SOLUTION 30ML As Ordered ONE; +HYDR-643 PO; +IBAN150T6 PO; +ISOVUE-370 76% 100ML VIAL As Ordered ONE; +ONDA-284 PO; -ONDA8TAB8 PO; +RIFA300C62 PO; +TRAM50TA2 PO; +VITA-172 PO; +VITA100093 PO
== END ==
LOC: M RAD 13:22
PROVIDERS: ATTEND Internal Medicine Gastroenterology
DX: R12 Heartburn (principal); Z85.00 Personal history of malignant neoplasm of unspecified digestive organ; Q39.4 Esophageal web; K74.3 Primary biliary cirrhosis; R11.0 Nausea; K59.00 Constipation, unspecified; Z90.49 Acquired absence of other specified parts of digestive tract
CPT/HCPCS: 74178; Q9963; Q9967

== ENCOUNTER → 2024-01-20 | Outpatient (CLI) | payer MEDICARE, MEDICAID ==
[~2024-01-20] MED LIST changes: -GASTROGRAFIN SOLUTION 30ML As Ordered ONE; +IBAN150T10 PO; -IBAN150T6 PO; -ISOVUE-370 76% 100ML VIAL As Ordered ONE
[2024-01-20 14:58] LABS: BASO # 0.1 10^3/uL (0.0-0.2); BASO % 1.2 % (0.0-1.0); EOS # 0.2 10^3/uL (0.0-0.5); HEMATOCRIT 39.8 % (36.0-47.0); HEMOGLOBIN 13.2 g/dl (12.0-15.5); LYMPH # 1.3 10^3/uL (1.5-5.0); LYMPH % 16.4 % (24.0-44.0); MEAN CORPUSCULAR HEMOGLOBIN 31.4 pg (27.0-33.0); MEAN CORPUSCULAR HGB CONC 33.2 g/dl (32.0-36.5); MEAN CORPUSCULAR VOLUME 94.5 fl (80.0-96.0); MONO # 0.4 10^3/uL (0.0-0.8); MONO % 4.7 % (2.0-8.0); NEUTROPHILS # 6.1 10^3/uL (1.5-8.5); NEUTROPHILS % 74.5 % (36.0-66.0); PLATELET COUNT, AUTOMATED 487 10^3/uL (150-450); RED BLOOD COUNT 4.21 10^6/uL (4.00-5.40); WHITE BLOOD COUNT 8.1 10^3/uL (4.0-10.0)
[2024-01-20 15:09] LABS: ERYTHROCYTE SEDIMENTATION RATE 26 mm/hr (0-30)
[2024-01-20 15:25] LABS: ALKALINE PHOSPHATASE 76 U/L (35-104); ALT/SGPT < 9 U/L (7.0-40); AST/SGOT 10 U/L (<34); BILIRUBIN,TOTAL 0.3 MG/DL (0.3-1.2); BLOOD UREA NITROGEN 6 MG/DL (9-23); CARBON DIOXIDE LEVEL 33 MMOL/L (20-31); CHLORIDE LEVEL 92 MMOL/L (98-107); CREATININE FOR GFR 0.49 MG/DL (0.55-1.30); GLOMERULAR FILTRATION RATE > 60.0 (>39); GLUCOSE, FASTING 78 MG/DL (74-106); POTASSIUM SERUM 4.7 MMOL/L (3.5-5.1); SODIUM LEVEL 129 MMOL/L (136-145)
== END ==
LOC: M PLALAB 12:26
PROVIDERS: ATTEND Internal Medicine Infectious Disease
DX: A31.0 Pulmonary mycobacterial infection (principal)

== ENCOUNTER → 2024-02-04 | Outpatient (CLI) | payer MEDICARE, MEDICAID | LOC: M PLAIMG 12:27 | PROVIDERS: ATTEND Internal Medicine Pulmonary Disease | DX: R91.8 Other nonspecific abnormal finding of lung field (principal); J47.9 Bronchiectasis, uncomplicated; J98.4 Other disorders of lung; I25.10 Atherosclerotic heart disease of native coronary artery without angina pectoris; J90 Pleural effusion, not elsewhere classified ==

== ENCOUNTER 2024-06-14 16:37 | Emergency (ER) | payer MEDICARE, MEDICAID ==
[~2024-06-14] VITALS: Ht 165.1 cm; Wt 34.3 kg
[~2024-06-14 16:37] MED LIST changes: -ADV250INH INH; +ADVA1AER9 INH; -FEXO-117 PO; +FEXO-193 PO
[2024-06-14] MEDS: PROMETHAZINE 25MG/ML 1ML VIAL IV ONE (18:33)
[2024-06-14] MEDS: PANTOPRAZOLE 40MG VIAL IV ONE (18:33)
[2024-06-14] MEDS: NS (Normal Saline) 0.9% 1,000 ML IV ONE ×2 (18:33→21:14)
[2024-06-14 18:34] LABS: BASO % 0.4 % (0.0-1.0); EOS # 0.2 10^3/uL (0.0-0.5); EOS % 2.9 % (0.0-3.0); HEMATOCRIT 32.7 % (36.0-47.0); HEMOGLOBIN 10.5 g/dl (12.0-15.5); LYMPH # 0.3 10^3/uL (1.5-5.0); LYMPH % 4.1 % (24.0-44.0); MEAN CORPUSCULAR HEMOGLOBIN 30.8 pg (27.0-33.0); MEAN CORPUSCULAR HGB CONC 32.1 g/dl (32.0-36.5); MEAN CORPUSCULAR VOLUME 95.9 fl (80.0-96.0); MONO # 0.3 10^3/uL (0.0-0.8); NEUTROPHILS # 7.3 10^3/uL (1.5-8.5); NEUTROPHILS % 88.1 % (36.0-66.0); PLATELET COUNT, AUTOMATED 362 10^3/uL (150-450); RED BLOOD COUNT 3.41 10^6/uL (4.00-5.40); WHITE BLOOD COUNT 8.3 10^3/uL (4.0-10.0)
[2024-06-14 19:07] LABS: LIPASE 16 U/L (12-53)
[2024-06-14 19:09] LABS: ALBUMIN 2.4 G/DL (3.2-5.2); ALKALINE PHOSPHATASE 66 U/L (35-104); ALT/SGPT 11 U/L (7.0-40); AST/SGOT 18 U/L (<34); BILIRUBIN,DIRECT 0.2 MG/DL (<0.4); BILIRUBIN,TOTAL 0.3 MG/DL (0.3-1.2); BLOOD UREA NITROGEN 13 MG/DL (9-23); CALCIUM LEVEL 8.2 MG/DL (8.3-10.6); CARBON DIOXIDE LEVEL 32 MMOL/L (20-31); CHLORIDE LEVEL 97 MMOL/L (98-107); CREATININE FOR GFR 0.46 MG/DL (0.55-1.30); GLOMERULAR FILTRATION RATE > 60.0 (>39); GLUCOSE, FASTING 80 MG/DL (74-106); POTASSIUM SERUM 4.1 MMOL/L (3.5-5.1); SODIUM LEVEL 133 MMOL/L (136-145); TOTAL PROTEIN 5.8 G/DL (5.7-8.2)
[2024-06-14 19:26] LABS: SP GRAVITY,URINE MANUAL REFLEX 1.021 (1.002-1.035)
[2024-06-14 19:36] LABS: NITRITE, URINE MANUAL RFX OBSCURED (NEGATIVE)
[2024-06-14 19:37] LABS: UROBILINOGEN, UA MANUAL REFLEX OBSCURED mg/dl (NORMAL)
[2024-06-14 19:38] LABS: KETONE, URINE MANUAL REFLEX OBSCURED mg/dL (NEGATIVE); PROTEIN, URINE MANUAL REFLEX OBSCURED mg/dL (NEGATIVE)
[2024-06-14 19:40] LABS: RBC, URINE MAN REFLEX 0-1 /hpf (0-3); SQUAMOUS EPITHELIAL URINE RFX SMALL AMOUNT /hpf (SMALL AMT); WBC, URINE MAN RFX 0-1 /hpf (0-3)
[2024-06-14 19:42] LABS: HYALINE CAST, URINE RFX NONE SEEN /lpf (0-1); MUCUS, URINE REFLEX SMALL AMOUNT (NEGATIVE); YEAST, URINE RFX SMALL AMOUNT
[2024-06-14 19:43] LABS: MICROSCOPIC EXAM RFX PERFORMED
[2024-06-14] MEDS: ASPIRIN 325 MG TAB PO ONE (19:51)
[2024-06-14 22:27] VITALS: BP 135/64; TEMP 99.3; O2SAT 94
== END 2024-06-14 22:34 | disposition home or self-care (01) ==
LOC: M ED 16:37
DX: A08.4 Viral intestinal infection, unspecified (principal); I10 Essential (primary) hypertension; Z87.448 Personal history of other diseases of urinary system; C25.9 Malignant neoplasm of pancreas, unspecified; F17.200 Nicotine dependence, unspecified, uncomplicated; Z79.82 Long term (current) use of aspirin; Z79.899 Other long term (current) drug therapy; Z91.041 Radiographic dye allergy status; Z88.6 Allergy status to analgesic agent; Z88.5 Allergy status to narcotic agent; Z88.8 Allergy status to other drugs, medicaments and biological substances
CPT/HCPCS: 74021; 80048; 80076; 81000; 81015; 83690; 85025; 87086; 87486; 87581; 87633; 87798; 93041; 96361; 96374; 96375; 99285; J2470; J2550

== ENCOUNTER 2024-08-05 19:23 | Emergency (ER) | payer MEDICARE, MEDICAID ==
[~2024-08-05] VITALS: Ht 165.1 cm; Wt 33.3 kg
[~2024-08-05 19:23] MED LIST changes: -TRIA25CR TOP; +TRIA80CR15 TOP
[2024-08-05 19:25] VITALS: TEMP 97
[2024-08-05 21:28] LABS: VENOUS BASE EXCESS 5.3 (-2.0-2.0); VENOUS HCO3 31.6 MMOL/L (23.0-27.0); VENOUS O2 SATURATION 84.1 % (60.0-80.0); VENOUS PARTIAL PRESSURE CO2 53.7 mmHg (38.0-50.0); VENOUS PARTIAL PRESSURE O2 48.6 mmHg (30.0-50.0); VENOUS PH 7.388 UNITS (7.330-7.430); VENOUS STANDARD HCO3 28.9 MMOL/L; VENOUS TOTAL CO2 33.3 MMOL/L (24.0-28.0)
[2024-08-05] MEDS: IPRATROPIUM 0.5MG/ALBUTEROL 2.5MG INH SOL UD 3ML NEB ONE (21:35)
[2024-08-05 21:38] LABS: BASO # 0.1 10^3/uL (0.0-0.2); BASO % 1.3 % (0.0-1.0); EOS # 0.6 10^3/uL (0.0-0.5); HEMATOCRIT 37.3 % (36.0-47.0); HEMOGLOBIN 12.7 g/dl (12.0-15.5); LYMPH # 1.7 10^3/uL (1.5-5.0); LYMPH % 18.7 % (24.0-44.0); MEAN CORPUSCULAR HEMOGLOBIN 31.1 pg (27.0-33.0); MEAN CORPUSCULAR VOLUME 91.2 fl (80.0-96.0); MONO # 0.8 10^3/uL (0.0-0.8); MONO % 9.2 % (2.0-8.0); NEUTROPHILS # 5.7 10^3/uL (1.5-8.5); NEUTROPHILS % 63.6 % (36.0-66.0); PLATELET COUNT, AUTOMATED 493 10^3/uL (150-450); RED BLOOD COUNT 4.09 10^6/uL (4.00-5.40)
[2024-08-05 21:57] LABS: CK-MB VALUE MASS < 1.0 NG/ML (<3.6)
[2024-08-05 21:59] LABS: ALBUMIN 3.3 G/DL (3.2-5.2); ALKALINE PHOSPHATASE 100 U/L (35-104); ALT/SGPT 10 U/L (7.0-40); AST/SGOT 14 U/L (<34); BILIRUBIN,DIRECT 0.1 MG/DL (<0.4); BILIRUBIN,TOTAL 0.4 MG/DL (0.3-1.2); BLOOD UREA NITROGEN 8 MG/DL (9-23); CARBON DIOXIDE LEVEL 35 MMOL/L (20-31); CHLORIDE LEVEL 85 MMOL/L (98-107); CREATININE FOR GFR 0.35 MG/DL (0.55-1.30); GLOMERULAR FILTRATION RATE > 90.0 (>39); GLUCOSE, FASTING 81 MG/DL (74-106); POTASSIUM SERUM 4.6 MMOL/L (3.5-5.1); SODIUM LEVEL 124 MMOL/L (136-145); TOTAL PROTEIN 7.2 G/DL (5.7-8.2)
[2024-08-05 22:00] LABS: CPK CREATINE PHOSPHOKINASE 41 U/L (34-145); MB/CK RELATIVE INDEX 2.43 (< OR =4)
[2024-08-05] MEDS: PROPRANOLOL 20 MG TAB PO ONE (22:23)
[2024-08-05 23:51] LABS: CK-MB VALUE MASS < 1.0 NG/ML (<3.6)
[2024-08-05 23:53] LABS: CPK CREATINE PHOSPHOKINASE 32 U/L (34-145); MB/CK RELATIVE INDEX 3.12 (< OR =4)
[2024-08-06] MEDS ORDERED: LEVO1TAB40 PO (01:35)
[2024-08-06 02:00] VITALS: BP 177/84
[2024-08-06 02:01] VITALS: O2SAT 99
[2024-08-06] MEDS: LevoFLOXacin 750 MG TABLET PO ONE (02:22)
[2024-08-06] MEDS ORDERED: AMOX875T2 PO (08:53)
== END 2024-08-06 02:30 | disposition home or self-care (01) ==
LOC: M ED 19:23
DX: J18.9 Pneumonia, unspecified organism (principal); E11.9 Type 2 diabetes mellitus without complications; J44.9 Chronic obstructive pulmonary disease, unspecified; I25.2 Old myocardial infarction; K21.9 Gastro-esophageal reflux disease without esophagitis; Z99.81 Dependence on supplemental oxygen; Z98.61 Coronary angioplasty status; Z87.891 Personal history of nicotine dependence; Z79.82 Long term (current) use of aspirin; Z79.899 Other long term (current) drug therapy; Z91.041 Radiographic dye allergy status; Z88.6 Allergy status to analgesic agent; Z88.5 Allergy status to narcotic agent; Z88.8 Allergy status to other drugs, medicaments and biological substances